=== PATIENT | female | born 1975 | race Two or more races ===

== ENCOUNTER 2022-07-20 14:22 | Inpatient (IN) | payer BC, OTHER ==
[~2022-07-20] VITALS: Ht 162.6 cm; Wt 83.4 kg
[2022-07-20 15:31] LABS: Urine Bacteria FEW /hpf (None Seen); Urine Blood Negative /uL (Negative); Urine Specific Gravity 1.007 (1.001-1.035); Urine WBC 1 /hpf (0 - 5)
[2022-07-20] MEDS ORDERED: IOHEXOL 350 MG/ML 100ML IJ ONE (16:26)
[2022-07-20 16:48] LABS: Basophils # (auto) 0.1 10 ^3/uL (0-0.2); Basophils % (auto) 0.5 % (0.0-2.0); Eosinophils # (auto) 0.1 10 ^3/uL (0-0.8); Eosinophils % (auto) 1.2 % (0.0-7.0); Hemoglobin 14.8 g/dL (12.2-16.2); Lymphocytes # (auto) 2.8 10 ^3/uL (0.4-5.4); Lymphocytes % (auto) 28.1 % (10.0-50.0); Mean Corpuscular Hemoglobin 29.8 pg (28.0-32.0); Mean Corpuscular Hgb Conc. 34.5 g/dL (32.0-36.0); Mean Corpuscular Volume 86.2 fL (80.0-100.0); Monocytes # (auto) 0.5 10 ^3/uL (0-1.3); Monocytes % (auto) 5.4 % (0.0-12.0); Neutrophils # (auto) 6.5 10 ^3/uL (1.6-8.6); Neutrophils % (auto) 64.8 % (37.0-80.0); Nucleated Red Blood Cells % 0.3 %; Red Blood Cells 4.99 10^6/uL (4.0-5.20); Red Cell Distribution Width 13.4 % (11.8-14.3); White Blood Cell 10.1 10^3/uL (4.4-10.8)
[2022-07-20 16:54] LABS: INR 0.99 (0.9-1.15); Partial Thromboplastin Time 27.1 sec (24.6-33.4)
[2022-07-20 17:20] LABS: Albumin 4.2 g/dL (3.4-5.0); BUN/Creatinine Ratio 19.2; Bilirubin, Total 0.5 mg/dL (0.2-1.0); Calcium 8.9 mg/dL (8.5-10.1); Potassium 4.2 mmol/L (3.5-5.1); Total Protein 7.7 g/dL (6.4-8.2)
[2022-07-20] MEDS ORDERED: DOCUSATE SOD 100 MG CAP PO PRN (22:15)
[2022-07-20] MEDS ORDERED: ONDANSETRON HCL 4 MG/2 ML VIAL IV PRN (22:15)
[2022-07-20] MEDS ORDERED: HYDROcodone-ACET 5/325MG TAB PO PRN (22:15)
[2022-07-20] MEDS ORDERED: ACETAMINOPHEN 325 MG TAB PO PRN (22:15)
[2022-07-20] MEDS ORDERED: MORPHINE SULFATE INJ 2 MG/ml SYRG IV PRN (23:15)
[2022-07-20] MEDS ORDERED: NITROGLYCERIN 0.4 MG SL TAB SL PRN (23:15)
[2022-07-21] VITALS (7 sets, daily range): BP systolic 108–127; BP diastolic 59–69
[2022-07-21] MEDS: SODIUM CHLORIDE 0.9% 1,000 ML IV SCH ×2 (00:45→13:39)
[2022-07-21 06:17] LABS: Basophils # (auto) 0 10 ^3/uL (0-0.2); Basophils % (auto) 0.3 % (0.0-2.0); Eosinophils # (auto) 0.1 10 ^3/uL (0-0.8); Eosinophils % (auto) 1.8 % (0.0-7.0); Hematocrit 38.5 % (36.0-46.0); Hemoglobin 13.6 g/dL (12.2-16.2); Lymphocytes % (auto) 36.1 % (10.0-50.0); Mean Corpuscular Hemoglobin 30.5 pg (28.0-32.0); Mean Corpuscular Hgb Conc. 35.2 g/dL (32.0-36.0); Mean Corpuscular Volume 86.5 fL (80.0-100.0); Monocytes # (auto) 0.6 10 ^3/uL (0-1.3); Monocytes % (auto) 6.7 % (0.0-12.0); Neutrophils # (auto) 4.5 10 ^3/uL (1.6-8.6); Neutrophils % (auto) 55.1 % (37.0-80.0); Nucleated Red Blood Cells % 0.7 %; Red Blood Cells 4.45 10^6/uL (4.0-5.20); Red Cell Distribution Width 13.7 % (11.8-14.3); White Blood Cell 8.2 10^3/uL (4.4-10.8)
[2022-07-21 06:33] LABS: Potassium 4.1 mmol/L (3.5-5.1)
[2022-07-21 06:39] LABS: Albumin 3.4 g/dL (3.4-5.0); BUN/Creatinine Ratio 17.1; Calcium 8.6 mg/dL (8.5-10.1)
[2022-07-21 06:42] LABS: Bilirubin, Total 0.6 mg/dL (0.2-1.0); Total Protein 6.6 g/dL (6.4-8.2)
[2022-07-21] MEDS: PANTOPRAZOLE 40 MG/10 ML VIAL INJ IV SCH ×2 (10:06→22:03)
[2022-07-21] MEDS: HYDROCORTISONE ACET 25 MG RECTAL SUPP PR SCH (22:04)
[2022-07-22 05:00] VITALS: BP 110/57
[2022-07-22] MEDS: SODIUM CHLORIDE 0.9% 1,000 ML IV SCH (07:35)
[2022-07-22 09:46] LABS: Hematocrit 40.9 % (36.0-46.0); Hemoglobin 14.1 g/dL (12.2-16.2)
[2022-07-22] MEDS: PANTOPRAZOLE 40 MG/10 ML VIAL INJ IV SCH (10:14)
[2022-07-22] MEDS: HYDROCORTISONE ACET 25 MG RECTAL SUPP PR SCH (10:14)
[2022-07-22 13:22] VITALS: BP 110/70
[2022-07-22] MEDS ORDERED: DOCU-94 PO (14:11)
[2022-07-22 16:34] VITALS: BP 127/73
== END 2022-07-22 16:28 | disposition home or self-care (01) | DRG 394 ==
LOC: ER 14:22 → OVERFLOW 23:15 → CENTRAL 07-21 02:45
PROVIDERS: ADMIT Nurse Practitioner Family; ATTEND Internal Medicine
DX: K64.9 Unspecified hemorrhoids (principal); K62.5 Hemorrhage of anus and rectum; E66.9 Obesity, unspecified; Z90.49 Acquired absence of other specified parts of digestive tract; Z87.440 Personal history of urinary (tract) infections; Z68.31 Body mass index [BMI] 31.0-31.9, adult; Z20.822 Contact with and (suspected) exposure to COVID-19
CPT/HCPCS: 36415; 74177; 80053; 81001; 83605; 84484; 85014; 85018; 85025; 85610; 85730; 87426; C9113; G0378

== ENCOUNTER → 2023-01-31 | Day surgery (SDC) | payer BC ==
[2023-01-29 10:52] LABS: Basophils # (auto) 0.1 10 ^3/uL (0-0.2); Basophils % (auto) 0.9 % (0.0-2.0); Eosinophils # (auto) 0.1 10 ^3/uL (0-0.8); Eosinophils % (auto) 1.2 % (0.0-7.0); Hematocrit 42.7 % (36.0-46.0); Hemoglobin 14.4 g/dL (12.2-16.2); Lymphocytes # (auto) 2.6 10 ^3/uL (0.4-5.4); Lymphocytes % (auto) 27.1 % (10.0-50.0); Mean Corpuscular Hemoglobin 29.6 pg (28.0-32.0); Mean Corpuscular Hgb Conc. 33.8 g/dL (32.0-36.0); Mean Corpuscular Volume 87.6 fL (80.0-100.0); Monocytes # (auto) 0.5 10 ^3/uL (0-1.3); Monocytes % (auto) 5.4 % (0.0-12.0); Neutrophils # (auto) 6.3 10 ^3/uL (1.6-8.6); Neutrophils % (auto) 65.4 % (37.0-80.0); Red Blood Cells 4.88 10^6/uL (4.0-5.20); Red Cell Distribution Width 13.2 % (11.8-14.3); White Blood Cell 9.6 10^3/uL (4.4-10.8)
[2023-01-29 11:23] LABS: INR 1.01 (0.9-1.15); Partial Thromboplastin Time 26.8 SEC (24.5-34.5); Prothrombin Time 10.6 sec (9.3-11.8)
[2023-01-29 12:39] LABS: Alanine Aminotransferase 24 U/L (7-40); Alkaline Phosphatase 67 U/L (46-116); BUN/Creatinine Ratio 14.3 (10.0-20.0); Blood Urea Nitrogen 11 mg/dL (9-23); Calcium 9.3 mg/dL (8.5-10.1); Carbon Dioxide 25 mmol/L (20-30); Glucose 107 mg/dL (74-106)
[2023-01-29 12:40] LABS: Albumin 4.3 g/dL (3.2-4.8); Aspartate Aminotransferase 11 U/L (13-40)
[2023-01-29 12:41] LABS: Bilirubin, Total 0.5 mg/dL (0.2-1.0); Total Protein 6.9 g/dL (5.7-8.2)
[2023-01-29 12:56] LABS: Anion Gap 8 (5-15); Chloride 106 mmol/L (98-107); Potassium 4.1 mmol/L (3.5-5.1); Sodium 139 mmol/L (136-145)
[~2023-01-31] VITALS: Ht 162.6 cm; Wt 93.4 kg
[~2023-01-31] MED LIST: ALL100T PO; AMLO1TAB21 PO; ATOR40TA52 PO; OMEP20TA PO; SODIUM CHLORIDE LOCK 10 ML ONE
[2023-01-31 16:00] VITALS: O2SAT 95
[2023-01-31] MEDS: diphenhdrAMINE HCL 50 MG/1 ML VL ONE ×2 (16:12→16:15)
[2023-01-31] MEDS: fentaNYL CITRATE 100 MCG/2 ML VL ONE ×3 (16:12→16:18)
[2023-01-31] MEDS: MIDAZOLAM HCL 5 MG/ML-1ML VIAL ONE ×3 (16:12→16:18)
[2023-01-31 16:30] VITALS: TEMP 98.8
[2023-01-31 17:00] VITALS: BP 108/69; PULSE 82; RESP 16; O2SAT 98
== END | disposition home or self-care (01) ==
LOC: GI 13:34
PROVIDERS: ATTEND Internal Medicine Gastroenterology
DX: K62.5 Hemorrhage of anus and rectum (principal); K63.5 Polyp of colon; K64.8 Other hemorrhoids; K64.4 Residual hemorrhoidal skin tags; I10 Essential (primary) hypertension; E78.5 Hyperlipidemia, unspecified; Z83.3 Family history of diabetes mellitus; Z82.49 Family history of ischemic heart disease and other diseases of the circulatory system; Z79.899 Other long term (current) drug therapy; Z90.710 Acquired absence of both cervix and uterus; Z98.890 Other specified postprocedural states
CPT/HCPCS: 36415; 45380; 80053; 81025; 85025; 85610; 85730; 88305; J1200; J2250; J3010; J7030

== ENCOUNTER 2024-07-17 04:52 | Inpatient (IN) | payer BC ==
[~2024-07-17] VITALS: Ht 162.6 cm; Wt 101.7 kg
[~2024-07-17 04:52] MED LIST changes: -SODIUM CHLORIDE LOCK 10 ML ONE
--- NOTE | 2024-07-17 06:29 | ED.PDOC ---
General HPI Comments 48 y/o F, presents to the ED for CC of flank pain. Patient states, that she has been experiencing LUQ abdominal pain with associated flank pain x4days. Patient relays, that she was seen at [facility] urgent care last night (07/16/24) and was given a Ketorolac shot for the pain and relayed to receive further imaging today (07/17/24). Patient complains of current 8/10 pain. Patient denies dysuria, hematuria, nausea, vomiting, or diarrhea. No other associated symptom's, modifiers, recent injuries or sick contacts at this time. Chief Complaint: Flank Pain Time Seen by MD: 06:10 Primary Care Provider: unknown Reviewed notes: Nurses Notes, Medications, Allergies Allergies: Coded Allergies: NO KNOWN ALLERGIES (Unverified , 07/20/22) Home Meds Reported Medications Omeprazole (Gnp Omeprazole) 20 Mg Tab, 20 MG PO DAILY, TAB 01/29/23 Amlodipine Besylate (Amlodipine Besylate) 2.5 Mg Tab, 2.5 MG PO DAILY, TAB 01/29/23 Atorvastatin Calcium (ATORVASTATIN CALCIUM) 40 Mg Tab, 40 MG PO DAILY, TAB 01/29/23 Allopurinol (ZYLOPRIM TABLET) 100 Mg Tb, 100 MG PO DAILY, TAB 01/29/23 Information Source: Patient, Significant Other Mode of Arrival: Ambulatory Severity: Moderate Inability to void: None Timing: Days Duration: Since onset Prehospital treatment: None Onset: Spontaneous Symptoms: None History of: UTI Location: (L)Flank associated signs and symptoms: Flank Pain Past Medical History PAST MEDICAL HISTORY: UTI'S Surgical History: Appendectomy, Cholecystectomy Surgical History (Other): RN URGENT CARE History: Other (ovaries) Family History Family History: Unknown Social History Smoker: Non-Smoker Alcohol: Denies ETOH Use Drugs: Denies Drug Use Lives In: Home Constitutional: denies: chills, diaphoresis, fatigue, fever, malaise, sweats, weakness, others EENTM: denies: blurred vision, double vision, ear bleeding, ear discharge, ear drainage, ear pain, ear ringing, eye pain, eye redness, hearing loss, mouth pain, mouth swelling, nasal discharge, nose bleeding, nose congestion, nose pain, photophobia, tearing, throat pain, throat swelling, voice changes, others Respiratory: denies: cough, hemoptysis, orthopnea, SOB at rest, shortness of breath, SOB with excertion, stridor, wheezing, others Cardiovascular: denies: chest pain, dizzy spells, diaphoresis, Dyspnea on exertion, edema, irregular heart beat, left arm pain, lightheadedness, palpitations, PND, syncope, others Gastrointestinal: denies: abdomen distended, abdominal pain, blood streaked bowels, constipated, diarrhea, dysphagia, difficulty swallowing, hematemesis, melena, nausea, poor appetite, poor fluid intake, rectal bleeding, rectal pain, vomiting, others Genitourinary: reports: flank pain; denies: abnormal vagina bleeding, burning, dyspareunia, dysuria, frequency, hematuria, incontinence, pain, , vagina discharge, urgency, others Neurological: denies: dizziness, fainting, headache, left sided numbness, left sided weakness, numbness, paresthesia, pre-existing deficit, right sided numbness, right sided weakness, seizure, speech problems, tingling, tremors, weakness, others Musculoskeletal: denies: back pain, gout, joint pain, joint swelling, muscle pain, muscle stiffness, neck pain, others Integumetry: denies: bruises, change in color, change in hair/nails, dryness, laceration, lesions, lumps, rash, wounds, others Allergic/Immunocompromised: denies: Difficulty Healing, Frequent Infections, Hives, Itching, others Hematologic/Lymphatic: denies: anemia, blood clots, easy bleeding, easy bruising, swollen glands, others Endocrine: denies: excessive hunger, excessive sweating, excessive thirst, excessive urination, flushing, intolerance to cold, intolerance to heat, unexplained weight gain, unexplained weight loss, others Psychiatric: denies: anxiety, bipolar disorder, depression, hopeless, panic disorder, schizophrenia, sleepless, suicidal, others All Other Systems: Reviewed and Negative Physical Exam General Appearance: Moderate Distress HEENT: Normal ENT Inspection, Pharynx Normal, TMs Normal Neck: Full Range of Motion, Non-Tender, Normal, Normal Inspection Respiratory: Chest Non-Tender, Lungs Clear, No Accessory Muscle Use, No Respiratory Distress, Normal Breath Sounds Cardiovascular: No Edema, No JVD, No Murmur, No Gallop, Normal Peripheral Pulses, Regular Rate/Rhythm Breast Exam: Deferred Gastrointestinal: No Organomegaly, Non Tender, No Pulsatile Mass, Normal Bowel Sounds, Soft Genitalia: Deferred Pelvic: Deferred Rectal: Deferred Extremities: No calf tenderness, Normal capillary refill, Normal inspection, Normal range of motion, Non-tender, No pedal edema Musculoskeletal : Apperance: Normal Neurologic: Alert, systems spec II-XII nml as Tested, No Motor Deficits, Normal Affect, Normal Mood, No Sensory Deficits Cerebellar Function: Normal Reflexes: Normal Skin: Dry, Normal Color, Warm Peripheral Pulses: 3+ Radial (R), 3+ Radial (L) Lymphatic: No Adenopathy Was a procedure done? Was a procedure done?: No Differential Diagnosis Kidney stone (Female): Musculoskeletal pain, Pyelonephritis, Urinary obstruction, Urolithiasis X-Ray, Labs, Meds, VS Vital Signs Date Time Temp Pulse Resp B/P (MAP) Pulse Ox O2 Delivery O2 Flow Rate FiO2 07/17/24 07:41 71 16 94 Room Air 07/17/24 07:30 71 18 98 Room Air* 0 21 07/17/24 07:20 98.0 71 16 114/62 (79) 92 98.0 07/17/24 05:02 97.8 72 16 122/61 (81) 95 Lab Test 07/17/24 05:45 Range/Units White Blood Count 10.0 4.4-10.8 10^3/uL Red Blood Count 5.04 4.0-5.20 10^6/uL Hemoglobin 15.4 12.2-16.2 g/dL Hematocrit 44.6 36.0-46.0 % Mean Corpuscular Volume 88.5 80.0-100.0 fL Mean Corpuscular Hemoglobin 30.6 28.0-32.0 pg Mean Corpuscular Hemoglobin Concent 34.5 32.0-36.0 g/dL Red Cell Distribution Width 13.1 11.8-14.3 % Platelet Count 214 140-450 10^3/uL Mean Platelet Volume 8.6 6.9-10.8 fL Neutrophils (%) (Auto) 67.6 37.0-80.0 % Lymphocytes (%) (Auto) 24.3 10.0-50.0 % Monocytes (%) (Auto) 5.8 0.0-12.0 % Eosinophils (%) (Auto) 1.7 0.0-7.0 % Basophils (%) (Auto) 0.6 0.0-2.0 % Neutrophils # (Auto) 6.8 1.6-8.6 10 ^3/uL Lymphocytes # (Auto) 2.4 0.4-5.4 10 ^3/uL Monocytes # (Auto) 0.6 0-1.3 10 ^3/uL Eosinophils # (Auto) 0.2 0-0.8 10 ^3/uL Basophils # (Auto) 0.1 0-0.2 10 ^3/uL Nucleated Red Blood Cells 0.1 % Sodium Level 134 L 136-145 mmol/L Potassium Level 4.3 3.5-5.1 mmol/L Chloride Level 102 98-107 mmol/L Carbon Dioxide Level 24 20-31 mmol/L Anion Gap 8 5-15 Blood Urea Nitrogen 9 9-23 mg/dL Creatinine 0.82 0.550-1.02 mg/dL Glomerular Filtration Rate Calc 87 >90 mL/min BUN/Creatinine Ratio 11.0 10.0-20.0 Serum Glucose 114 H 74-106 mg/dL Calcium Level 9.6 8.7-10.4 mg/dL Current Medications Medications (Trade) Dose Ordered Sig/Elvira Route Start Time Stop Time Status Last Admin Sodium Chloride 1,000 ml @ 1,000 mls/hr Q1H ONCE IV 07/17/24 06:30 07/17/24 07:29 DC 07/17/24 07:00 Sodium Chloride 1,000 ml @ 150 mls/hr Q6H40M ONCE IV 07/17/24 06:30 07/17/24 13:09 07/17/24 06:30 Ketorolac Tromethamine (Toradol Injection) 30 mg ONCE ONCE IV 07/17/24 06:30 07/17/24 06:31 DC 07/17/24 07:06 Ondansetron HCl (Zofran) 4 mg ONCE ONCE IV 07/17/24 06:30 07/17/24 06:31 DC 07/17/24 07:[address] [address] Ph: [phone] DIAGNOSTIC IMAGING Diagnostic Imaging Report : [id number] Signed PATIENT: PATRICIA WILKINS ACCT: [id number] UNIT: [id number] : 1975 LOC: ER ROOM / BED: / AGE / SEX: 48 / F ADM STATUS: REG ER SERVICE 0716 ORDERING PHYSICIAN: JARED CANALES MD PROCEDURE(s): ABPL - CT AB PEL WO CON-NO ORAL OR IV REASON: stone ORDER NUMBER(s): [id number], ACCESSION NUMBER(s): [id number] Exam: CT CT AB PEL WO CON-NO ORAL OR IV History: stone Comparison Study: None available at time of dictation. Technique: Multidetector spiral CT of the abdomen and pelvis was performed from lung bases to pubic symphysis. Imaging was performed without intravenous contrast. Coronal and sagittal multiplanar reformats were obtained from the axial data set by the technologist. Radiation Dose : 1. Abdomen/Pelvis: CTDIvol 24.67 mGy, DLP 1542.65 mGy*cm. Findings: Evaluation of vasculature and solid organs is limited due to lack of intravenous contrast use. Lung Bases: Lung bases are clear. Visualized portions of the heart and pericardium are unremarkable. Liver: The liver is normal in size. No focal lesions. Gallbladder and Biliary Tree: The gallbladder is surgically absent. No intrahe patic or extrahepatic biliary ductal dilatation. Spleen: Unremarkable Pancreas: The pancreas is grossly unremarkable. Adrenal Glands: Unremarkable Kidneys: Kidneys are unremarkable without calculi or hydronephrosis. GI tract: The stomach is grossly normal in appearance. No evidence of small bowel wall thickening or abnormal dilatation to suggest bowel obstruction. The colon is unremarkable. The appendix is not visualized, however no inflammatory changes in the right lower quadrant to suggest acute appendicitis. Peritoneum/mesentery/retroperitoneum. No evidence of free intraperitoneal air. No ascites. No evidence of suspicious lymphadenopathy. Abdominal Wall: Fat containing umbilical hernia. Vasculature: The visualized abdominal aorta is normal in size and caliber. Evaluation of abdominal and pelvic vessels is limited due to lack of intravenous contrast. Urinary Bladder: Grossly unremarkable for degree of distention. Pelvic Organs: Unremarkable Musculoskeletal: No aggressive focal bony lesions, acute fractures or dislocation. IMPRESSION: 1. No acute abdominal or pelvic findings. 2. Cholecystectomy. ATED BY: KALIE DANIEL MD DICTATED DATE/TIME: 07/17/24 9639 SIGNED BY: KALIE DANIEL MD SIGNED DATE/TIME: 07/17/24 0755 CC: Patient alert. Complaining of flank pain. Possible kidney stone. Vitals stable. Answering questions. Abdomen is soft nontender. Establish intravenous access. Was given fluids. Was given Toradol. Reviewed her visit at urgent care yesterday. Explained to the patient. Continue monitoring. Time of 1ST Reevaluation: 06:40 Reevaluation 1ST: Unchanged Patient Education/Counseling: Diagnosis, Treatment Family Education/Counseling: No Family Present Departure 1 Departure Time of Disposition: 07:03 Impression: Primary Impression: Acute abdominal pain Disposition: ADMITTED INPATIENT Admit to: Med Surg Condition: Guarded Critical Care Note Critical Care Time?: No Stability Stability form required: No Heart Score Heart Score: Heart Score Response (Comments) Value History N/A 0 EKG N/A 0 Age N/A 0 Risk Factors N/A 0 Troponin N/A 0 Total 0 I personally scribed for JARED CANALES MD ([email or web address]) on 07/17/24 at 06:29. Electronically submitted by Viviana Liu ([email or web address]). I personally scribed for JARED CANALES MD ([email or web address]) on 07/17/24 at 08:03. Electronically submitted by Viviana Liu ([email or web address]). JARED CANALES MD Jul 17, 2024 06:29
[2024-07-17] MEDS: SODIUM CHLORIDE 0.9% 1,000 ML IV ONE ×2 (06:30→07:00)
[2024-07-17 06:47] LABS: Anion Gap 8 (5-15); Basophils # (auto) 0.1 10 ^3/uL (0-0.2); Basophils % (auto) 0.6 % (0.0-2.0); Carbon Dioxide 24 mmol/L (20-31); Chloride 102 mmol/L (98-107); Eosinophils # (auto) 0.2 10 ^3/uL (0-0.8); Eosinophils % (auto) 1.7 % (0.0-7.0); Hematocrit 44.6 % (36.0-46.0); Hemoglobin 15.4 g/dL (12.2-16.2); Lymphocytes # (auto) 2.4 10 ^3/uL (0.4-5.4); Lymphocytes % (auto) 24.3 % (10.0-50.0); Mean Corpuscular Hemoglobin 30.6 pg (28.0-32.0); Mean Corpuscular Hgb Conc. 34.5 g/dL (32.0-36.0); Mean Corpuscular Volume 88.5 fL (80.0-100.0); Monocytes # (auto) 0.6 10 ^3/uL (0-1.3); Monocytes % (auto) 5.8 % (0.0-12.0); Neutrophils # (auto) 6.8 10 ^3/uL (1.6-8.6); Neutrophils % (auto) 67.6 % (37.0-80.0); Nucleated Red Blood Cells % 0.1 %; Platelet Count (auto) 214 10^3/uL (140-450); Potassium 4.3 mmol/L (3.5-5.1); Red Blood Cells 5.04 10^6/uL (4.0-5.20); Red Cell Distribution Width 13.1 % (11.8-14.3)
[2024-07-17 06:48] LABS: Calcium 9.6 mg/dL (8.7-10.4)
[2024-07-17 06:53] LABS: Blood Urea Nitrogen 9 mg/dL (9-23); Glucose 114 mg/dL (74-106); Sodium 134 mmol/L (136-145)
[2024-07-17] MEDS: KETOROLAC TROMETH 30 MG/ML 1ML VIAL IV ONE (07:06)
[2024-07-17] MEDS: ONDANSETRON HCL 4 MG/2 ML VIAL IV ONE (07:06)
[2024-07-17 07:30] VITALS: PULSE 71; RESP 18; O2SAT 98
--- NOTE | 2024-07-17 07:58 | DVH ---
Exam: CT CT AB PEL WO CON-NO ORAL OR IV History: stone Comparison Study: None available at time of dictation. Technique: Multidetector spiral CT of the abdomen and pelvis was performed from lung bases to pubic s ymphysis. Imaging was performed without intravenous contrast. Coronal and sagittal multiplanar reform ats were obtained from the axial data set by the technologist. Radiation Dose : 1. Abdomen/Pelvis: CTDIvol 24.67 mGy, DLP 1542.65 mGy*cm. Findings: Evaluation of vasculature and solid organs is limited due to lack of intravenous contrast use. Lung Bases: Lung bases are clear. Visualized portions of the heart and pericardium are unremarkable. Liver: The liver is normal in size. No focal lesions. Gallbladder and Biliary Tree: The gallbladder is surgically absent. No intrahepatic or extrahepatic b iliary ductal dilatation. Spleen: Unremarkable Pancreas: The pancreas is grossly unremarkable. Adrenal Glands: Unremarkable Kidneys: Kidneys are unremarkable without calculi or hydronephrosis. GI tract: The stomach is grossly normal in appearance. No evidence of small bowel wall thickening or abnormal dilatation to suggest bowel obstruction. The colon is unremarkable. The appendix is not visu alized, however no inflammatory changes in the right lower quadrant to suggest acute appendicitis. Peritoneum/mesentery/retroperitoneum. No evidence of free intraperitoneal air. No ascites. No evidenc e of suspicious lymphadenopathy. Abdominal Wall: Fat containing umbilical hernia. Vasculature: The visualized abdominal aorta is normal in size and caliber. Evaluation of abdominal a nd pelvic vessels is limited due to lack of intravenous contrast. Urinary Bladder: Grossly unremarkable for degree of distention. Pelvic Organs: Unremarkable Musculoskeletal: No aggressive focal bony lesions, acute fractures or dislocation. IMPRESSION: 1. No acute abdominal or pelvic findings. 2. Cholecystectomy.
[2024-07-17 09:49] LABS: Urine Bacteria FEW /hpf (None Seen); Urine Blood Negative /uL (Negative); Urine Clarity Clear (Clear); Urine Color Light-Yellow (Yellow); Urine Protein, UAD Negative (Negative); Urine Specific Gravity 1.012 (1.001-1.035); Urine Squamous Epithelial Cell FEW /hpf (<5); Urine Urobilinogen Normal (Negative); Urine WBC 1 /HPF (0-5); Urine pH 5.5 (5.0-9.0)
[2024-07-17] MEDS ORDERED: ACETAMINOPHEN 325 MG TAB PO PRN (11:15)
--- NOTE | 2024-07-17 11:20 | DVHHP2 ---
History of Present Illness Reason for Visit: Left flank pain History of Present Illness Dorene Byunm is a 48-year-old female with past medical history of UTIs, rectal bleeding, appendectomy, cholecystectomy, oophorectomy, and polyps from the colonoscopy who presents to the ED with left flank pain that is 9/10 throbbing and intermittent in nature. Patient also reports that when she eats the pain is worse. She also reports that when she stands the pain is better. Patient is denying of urinary symptoms at this time. She denies nausea, vomiting, diarrhea, bloody stool, bloody emesis, fever, chills, recent trauma or injury, recent illnesses, recent ingestion of spoiled food Renal/: UTI Past Medical History Rectal bleeding Polyps on colonoscopy Past Surgical History: Appendectomy, Cholecystectomy, Other (Oophorectomy) Family History: None Smoke: No ALCOHOL: none Drugs: None Lives: with Family Domestic Violence: Neg Review of Systems Gastrointestinal: Abdominal Pain Musculoskeletal: other (Left-sided flank pain) Allergies: Coded Allergies: NO KNOWN ALLERGIES (Unverified , 07/20/22) Exam Vital Signs Vital Signs Date Time Temp Pulse Resp B/P (MAP) Pulse Ox O2 Delivery O2 Flow Rate FiO2 07/17/24 09:05 97.9 66 15 112/64 (80) 92 97.9 07/17/24 07:41 Room Air 07/17/24 07:30 0 21 General Appearance: Alert, Oriented X3, Cooperative, No acute distress HEENT: Atraumatic, PERRLA, EOMI, Mucous membr. moist/pink Respiratory: Clear to auscultation, Normal air movement Cardiovascular: Normal S1, Normal S2, No murmurs Abdominal: Soft, No hepatospenomegaly, No masses Extremities: No cyanosis, Normal pulses, No tenderness/swelling Skin: No rashes, No breakdown, No significant lesion Neuro: Normal gait, Normal speech, Strength at 5/5 X4 ext, Normal tone, Sensation intact Psych/Mental Status: Mental status NL, Mood NL Labs/Xrays Labs Test 07/17/24 08:30 07/17/24 05:45 Range/Units Urine Color Light-yellow Yellow Urine Clarity Clear Clear Urine pH 5.5 5.0-9.0 Urine Specific [place] 1.012 1.001-1.035 Urine Protein Negative Negative Urine Ketones Negative Negative Urine Blood Negative Negative /uL Urine Nitrite Negative Negative Urine Bilirubin Negative Negative Urine Urobilinogen Normal Negative mg/dL Urine Leukocyte Esterase Negative Negative /uL Urine RBC 1 0 - 4 /hpf Urine Microscopic WBC 1 0-5 /HPF Urine Squamous Epithelial Cells Few <5 /hpf Urine Bacteria Few H None Seen /hpf Urine Glucose Normal Normal mg/dL White Blood Count 10.0 4.4-10.8 10^3/uL Red Blood Count 5.04 4.0-5.20 10^6/uL Hemoglobin 15.4 12.2-16.2 g/dL Hematocrit 44.6 36.0-46.0 % Mean Corpuscular Volume 88.5 80.0-100.0 fL Mean Corpuscular Hemoglobin 30.6 28.0-32.0 pg Mean Corpuscular Hemoglobin Concent 34.5 32.0-36.0 g/dL Red Cell Distribution Width 13.1 11.8-14.3 % Platelet Count 214 140-450 10^3/uL Mean Platelet Volume 8.6 6.9-10.8 fL Neutrophils (%) (Auto) 67.6 37.0-80.0 % Lymphocytes (%) (Auto) 24.3 10.0-50.0 % Monocytes (%) (Auto) 5.8 0.0-12.0 % Eosinophils (%) (Auto) 1.7 0.0-7.0 % Basophils (%) (Auto) 0.6 0.0-2.0 % Neutrophils # (Auto) 6.8 1.6-8.6 10 ^3/uL Lymphocytes # (Auto) 2.4 0.4-5.4 10 ^3/uL Monocytes # (Auto) 0.6 0-1.3 10 ^3/uL Eosinophils # (Auto) 0.2 0-0.8 10 ^3/uL Basophils # (Auto) 0.1 0-0.2 10 ^3/uL Nucleated Red Blood Cells 0.1 % Sodium Level 134 L 136-145 mmol/L Potassium Level 4.3 3.5-5.1 mmol/L Chloride Level 102 98-107 mmol/L Carbon Dioxide Level 24 20-31 mmol/L Anion Gap 8 5-15 Blood Urea Nitrogen 9 9-23 mg/dL Creatinine 0.82 0.550-1.02 mg/dL Glomerular Filtration Rate Calc 87 >90 mL/min BUN/Creatinine Ratio 11.0 10.0-20.0 Serum Glucose 114 H 74-106 mg/dL Calcium Level 9.6 8.7-10.4 mg/dL INDICATION: left flank pain TECHNIQUE: Multiple real-time sonographic images of the kidneys and bladder were obtained. COMPARISON: None FINDINGS: RIGHT kidney measures 10.5 cm in length. No hydronephrosis. LEFT kidney measures 11.0 cm in length. No hydronephrosis. No large intraluminal masses are seen in the bladder. IMPRESSION: 1. Unremarkable examination. Exam: CT CT AB PEL WO CON-NO ORAL OR IV History: stone Comparison Study: None available at time of dictation. Technique: Multidetector spiral CT of the abdomen and pelvis was performed from lung bases to pubic symphysis. Imaging was performed without intravenous contrast. Coronal and sagittal multiplanar reformats were obtained from the axial data set by the technologist. Radiation Dose : 1. Abdomen/Pelvis: CTDIvol 24.67 mGy, DLP 1542.65 mGy*cm. Findings: Evaluation of vasculature and solid organs is limited due to lack of intravenous contrast use. Lung Bases: Lung bases are clear. Visualized portions of the heart and pericardium are unremarkable. Liver: The liver is normal in size. No focal lesions. Gallbladder and Biliary Tree: The gallbladder is surgically absent. No intrahepatic or extrahepatic biliary ductal dilatation. Spleen: Unremarkable Pancreas: The pancreas is grossly unremarkable. Adrenal Glands: Unremarkable Kidneys: Kidneys are unremarkable without calculi or hydronephrosis. GI tract: The stomach is grossly normal in appearance. No evidence of small bowel wall thickening or abnormal dilatation to suggest bowel obstruction. The colon is unremarkable. The appendix is not visualized, however no inflammatory changes in the right lower quadrant to suggest acute appendicitis. Peritoneum/mesentery/retroperitoneum. No evidence of free intraperitoneal air. No ascites. No evidence of suspicious lymphadenopathy. Abdominal Wall: Fat containing umbilical hernia. Vasculature: The visualized abdominal aorta is normal in size and caliber. Evaluation of abdominal and pelvic vessels is limited due to lack of intravenous contrast. Urinary Bladder: Grossly unremarkable for degree of distention. Pelvic Organs: Unremarkable Musculoskeletal: No aggressive focal bony lesions, acute fractures or dislocation. IMPRESSION: 1. No acute abdominal or pelvic findings. 2. Cholecystectomy. Assessment/Plan Assessment/Plan Assessment Intractable left flank pain ? Colitis Hyponatremia History of UTIs History of rectal bleeding History of appendectomy History of cholecystectomy History of oophorectomy History of polyps on colonoscopy Plan Admit to med [facility] UA noted CT abdomen and pelvis noted 2 L IV fluids given in ED Antiemetics Pain management Left kidney ultrasound PPI Diet IV antibiotics-Zosyn Ultrasound left kidney ordered DVT prophylaxis not indicated patient ambulating Patient reports that she does not take any home medications Discussed plan of care with patient, patient's spouse, and nurse Plan discussed with: Patient, Spouse My Orders Orders - SEBLE SANCHEZ Procedure Category Date Status Time Kidney US 07/17/24 Logged 11:11 Admit ADMIT 07/17/24 Verified 11:14 Allergies ALLEN 07/17/24 Verified 11:14 Code Status CODE 07/17/24 Verified 11:14 Hydrocodone-Acet PHA 07/17/24 Verified 5/325mg Tab ([place] 11:15 Ondansetron Hcl PHA 07/17/24 Verified (Zofran) 11:15 Complete Blood Count LAB 07/18/24 Verified 04:00 Comprehensive LAB 07/18/24 Verified Metabolic Panel 04:00 Cardiac DIET 07/17/24 Verified Diet-2gna,Lofat,Lochol Lunch Acetaminophen Tablet PHA 07/17/24 Verified (Tylenol Tablet) 11:15 Morphine Sulfate PHA 07/17/24 Verified Injection 11:15 Date of Service: Jul 17, 2024 Billing Provider: SEBLE SANCHEZ Common Visit Codes: [id number] INP/OBS CARE (HIGH) SEBLE SANCHEZ Jul 17, 2024 11:20
[2024-07-17] MEDS: ONDANSETRON HCL 4 MG/2 ML VIAL IV PRN (11:42)
[2024-07-17] MEDS: MORPHINE SULFATE INJ 2 MG/ml SYRG IV PRN (11:47)
--- NOTE | 2024-07-17 12:37 | DVH ---
INDICATION: left flank pain TECHNIQUE: Multiple real-time sonographic images of the kidneys and bladder were obtained. COMPARISON: None FINDINGS: RIGHT kidney measures 10.5 cm in length. No hydronephrosis. LEFT kidney measures 11.0 cm in length. No hydronephrosis. No large intraluminal masses are seen in the bladder. IMPRESSION: 1. Unremarkable examination.
[2024-07-17 15:26] VITALS: BP 115/58; PULSE 92; RESP 25; TEMP 97.7; O2SAT 96
[2024-07-17 15:31] VITALS: PULSE 77; RESP 18; O2SAT 94
[2024-07-17] MEDS: PIPERACILLIN-TAZOB 3.375GM 100 ML IV ONE (16:20)
[2024-07-17] MEDS: PIPERACILLIN-TAZOB 3.375GM 100 ML IV SCH (16:21)
[2024-07-17 18:16] VITALS: BP 111/56; PULSE 74; RESP 18; TEMP 98; O2SAT 95
[2024-07-17 23:04] VITALS: BP 126/55; PULSE 77; RESP 18; TEMP 98; O2SAT 92
[2024-07-18] VITALS (7 sets, daily range): BP systolic 111–125; BP diastolic 50–74; PULSE 66–83; RESP 16–20; TEMP 97.8–98; O2SAT 93–100
[2024-07-18 07:03] LABS: Basophils # (auto) 0 10 ^3/uL (0-0.2); Basophils % (auto) 0.4 % (0.0-2.0); Eosinophils # (auto) 0.1 10 ^3/uL (0-0.8); Eosinophils % (auto) 1.6 % (0.0-7.0); Hematocrit 38.6 % (36.0-46.0); Hemoglobin 13.5 g/dL (12.2-16.2); Lymphocytes # (auto) 1.8 10 ^3/uL (0.4-5.4); Lymphocytes % (auto) 21.5 % (10.0-50.0); Mean Corpuscular Hemoglobin 30.7 pg (28.0-32.0); Mean Corpuscular Hgb Conc. 35.1 g/dL (32.0-36.0); Mean Corpuscular Volume 87.5 fL (80.0-100.0); Monocytes # (auto) 0.5 10 ^3/uL (0-1.3); Neutrophils % (auto) 70.5 % (37.0-80.0); Platelet Count (auto) 177 10^3/uL (140-450); Red Blood Cells 4.41 10^6/uL (4.0-5.20); Red Cell Distribution Width 13.3 % (11.8-14.3); White Blood Cell 8.5 10^3/uL (4.4-10.8)
[2024-07-18 07:21] LABS: Alanine Aminotransferase 31 U/L (7-40); Alkaline Phosphatase 73 U/L (46-116); Anion Gap 5 (5-15); Aspartate Aminotransferase 18 U/L (13-40); BUN/Creatinine Ratio 12.6 (10.0-20.0); Blood Urea Nitrogen 12 mg/dL (9-23); Calcium 9.1 mg/dL (8.7-10.4); Carbon Dioxide 26 mmol/L (20-31); Chloride 107 mmol/L (98-107); Potassium 4.4 mmol/L (3.5-5.1); Sodium 138 mmol/L (136-145); Total Protein 6.3 g/dL (5.7-8.2)
[2024-07-18 07:22] LABS: Bilirubin, Total 0.6 mg/dL (0.2-1.0)
[2024-07-18 07:28] LABS: Glucose 115 mg/dL (74-106)
[2024-07-18] MEDS: PANTOPRAZOLE 40 MG/10 ML VIAL INJ IV SCH (08:25)
--- NOTE | 2024-07-18 09:52 | MEDREC ---
[facility] ASP Intervention Section I [facility] ASP Intervention: Review courses of therapy (PLEASE CONSIDER DISCONTINUING ANTIBIOTIC IF THERE IS NO MORE CONCERN OF INFECTIONS) KRISTIE JAEGER Jul 18, 2024 09:52
--- NOTE | 2024-07-18 12:43 | DVHPN2 ---
Reviewed: Care Plan, H&P, Labs, Medications, Previous Orders, Radiology Changes from previous H/P or p: No Changes Gastrointestinal: Abdominal Pain Musculoskeletal: other (Left-sided flank pain) Objective Vitals Vital Signs Date Time Temp Pulse Resp B/P (MAP) Pulse Ox O2 Delivery O2 Flow Rate FiO2 07/18/24 09:00 97.8 73 17 111/73 (86) 95 97.8 07/18/24 08:00 Room Air* 0 21 Intake/Output Intake and Output 07/18/24 07:00 Intake Total 390 ml Output Total 1 ml Balance 389 ml Intake Oral 390 ml Output Urine Total 1 ml Medications Current Medications Medications Dose Ordered Sig/Elvira Route Start Time Stop Time Status Last Admin Dose Admin Acetaminophen/ Hydrocodone Bitart 1 tab Q4HP PRN PO 07/17/24 11:15 Ondansetron HCl 4 mg Q4HP PRN IV 07/17/24 11:15 07/18/24 08:24 4 MG Acetaminophen 650 mg Q6HP PRN PO 07/17/24 11:15 Morphine Sulfate 2 mg Q4HPRN PRN IV 07/17/24 11:15 07/18/24 08:25 2 MG Pantoprazole Sodium 40 mg DAILY IV 07/18/24 10:00 07/18/24 08:25 40 MG Piperacillin Sod/ Tazobactam Sod 100 ml @ 25 mls/hr Q8HR IV 07/17/24 14:00 07/18/24 05:38 25 MLS/HR Laboratory Results Laboratory Tests 07/18/24 06:15 Chemistry Test 07/18/24 06:15 Albumin 4.0 g/dL (3.2-4.8) Calcium Level 9.1 mg/dL (8.7-10.4) Total Protein 6.3 g/dL (5.7-8.2) LFT Test 07/18/24 06:15 Alanine Aminotransferase (ALT) 31 U/L (7-40) Alkaline Phosphatase 73 U/L (46-116) Aspartate Amino Transferase (AST) 18 U/L (13-40) Total Bilirubin 0.6 mg/dL (0.2-1.0) Urinalysis Test 07/17/24 08:30 Urine Color Light-yellow (Yellow) Urine Clarity Clear (Clear) Urine pH 5.5 (5.0-9.0) Urine Specific [place] 1.012 (1.001-1.035) Urine Protein Negative (Negative) Urine Ketones Negative (Negative) Urine Blood Negative /uL (Negative) Urine Nitrite Negative (Negative) Urine Bilirubin Negative (Negative) Urine Urobilinogen Normal mg/dL (Negative) Urine Leukocyte Esterase Negative /uL (Negative) Urine RBC 1 /hpf (0 - 4) Urine Microscopic WBC 1 /HPF (0-5) Urine Squamous Epithelial Cells Few /hpf (<5) Urine Bacteria Few /hpf (None Seen) H Urine Glucose Normal mg/dL (Normal) Labs and/or images reviewed: Labs reviewed by me, Image(s) reviewed by me Assessment/Plan Assessment/Plan Acute left flank pain: CT abdomen pelvis without contrast negative all labs normal UA negative for infection: Consult for GI Dr. Nicko Salmeron Urinary tract infections History of rectal bleed History of removal of colon polyps Plan discussed with: Patient My Orders Orders - COURTNEY BLAKELY MD Procedure Category Date Status Time * [facility] [place] CONS 07/18/24 Transmitted 12:41 Date of Service: Jul 18, 2024 Billing Provider: COURTNEY BLAKELY MD Common Visit Codes: [id number] INP/OBS CARE(HIGH) COURTNEY BLAKELY MD Jul 18, 2024 12:43
[2024-07-18] MEDS: HYDROcodone-ACET 5/325MG TAB PO PRN (13:03)
--- NOTE | 2024-07-18 14:14 | DVHINCON2 ---
GI Consult Consult Note GI consult note Date of Consultation: 07/18/2024 Chief Complaint: Left flank pain Referring Physician: Dr. Keyona Blakely H&P: 48-year-old [place]auan-speaking patient presented to ER with left flank pain. RN translating Patient complains of pain being stabbing in nature, starts in the left upper quadrant and radiates to her left flank Pain is worse after eating food No nausea or vomiting. No hematemesis. No symptoms of GERD. No EGD in past Last BM two days ago. No melena or red blood in stool SP colonoscopy DATE OF OPERATION: 01/31/23 PROCEDURE: Colonoscopy with biopsy. PREOPERATIVE INDICATION: The patient is a 47 -year-old female undergoing colonoscopy for history of rectal bleeding and colon cancer screening POSTOPERATIVE DIAGNOSES: 1. Patient had 1+ slightly inflamed internal and 2+ external hemorrhoids with no active bleeding at this time 2. There were 3 diminutive 1 mm benign-appearing sigmoid polyps that were seen removed by cold biopsy forceps 3. Otherwise complete and normal colonoscopy examination up to the cecum and terminal ileum PROCEDURE PERFORMED BY: Stephani Salmeron M.D. Past Medical History: Rectal bleeding Polyps on colonoscopy Past Surgical History: Appendectomy, Cholecystectomy, Other (Oophorectomy) Social History: NO smoking, drinking ETOH and use of illegal drugs. Family History: Noncontributory Review of Systems: Constitutional: no fever, chill, weight loss HEENT: no eye pain, no hearing loss, no oral lesion, no scleral icterus Heart: no chest pain, no chest pressure Lung: no cough, no dyspnea with exertion Abdomen: see HPI Physical exam: General: NAD, AAOX3 Chest: lung morgan clear to auscultation Heart: RRR, no murmur Abdomen: Left upper quadrant tenderness to palpation, +BS Labs: Labs Test 07/18/24 06:15 07/17/24 08:30 Range/Units White Blood Count 8.5 4.4-10.8 10^3/uL Red Blood Count 4.41 4.0-5.20 10^6/uL Hemoglobin 13.5 12.2-16.2 g/dL Hematocrit 38.6 # 36.0-46.0 % Mean Corpuscular Volume 87.5 80.0-100.0 fL Mean Corpuscular Hemoglobin 30.7 28.0-32.0 pg Mean Corpuscular Hemoglobin Concent 35.1 32.0-36.0 g/dL Red Cell Distribution Width 13.3 11.8-14.3 % Platelet Count 177 140-450 10^3/uL Mean Platelet Volume 8.6 6.9-10.8 fL Neutrophils (%) (Auto) 70.5 37.0-80.0 % Lymphocytes (%) (Auto) 21.5 10.0-50.0 % Monocytes (%) (Auto) 6.0 0.0-12.0 % Eosinophils (%) (Auto) 1.6 0.0-7.0 % Basophils (%) (Auto) 0.4 0.0-2.0 % Neutrophils # (Auto) 6.0 1.6-8.6 10 ^3/uL Lymphocytes # (Auto) 1.8 0.4-5.4 10 ^3/uL Monocytes # (Auto) 0.5 0-1.3 10 ^3/uL Eosinophils # (Auto) 0.1 0-0.8 10 ^3/uL Basophils # (Auto) 0 0-0.2 10 ^3/uL Nucleated Red Blood Cells 0.0 % Sodium Level 138 136-145 mmol/L Potassium Level 4.4 3.5-5.1 mmol/L Chloride Level 107 98-107 mmol/L Carbon Dioxide Level 26 20-31 mmol/L Anion Gap 5 5-15 Blood Urea Nitrogen 12 9-23 mg/dL Creatinine 0.95 0.550-1.02 mg/dL Glomerular Filtration Rate Calc 73 >90 mL/min BUN/Creatinine Ratio 12.6 10.0-20.0 Serum Glucose 115 H 74-106 mg/dL Calcium Level 9.1 8.7-10.4 mg/dL Total Bilirubin 0.6 0.2-1.0 mg/dL Aspartate Amino Transferase (AST) 18 13-40 U/L Alanine Aminotransferase (ALT) 31 7-40 U/L Alkaline Phosphatase 73 46-116 U/L Total Protein 6.3 5.7-8.2 g/dL Albumin 4.0 3.2-4.8 g/dL Urine Color Light-yellow Yellow Urine Clarity Clear Clear Urine pH 5.5 5.0-9.0 Urine Specific [place] 1.012 1.001-1.035 Urine Protein Negative Negative Urine Ketones Negative Negative Urine Blood Negative Negative /uL Urine Nitrite Negative Negative Urine Bilirubin Negative Negative Urine Urobilinogen Normal Negative mg/dL Urine Leukocyte Esterase Negative Negative /uL Urine RBC 1 0 - 4 /hpf Urine Microscopic WBC 1 0-5 /HPF Urine Squamous Epithelial Cells Few <5 /hpf Urine Bacteria Few H None Seen /hpf Urine Glucose Normal Normal mg/dL Imaging: CT abdomen pelvis IMPRESSION: 1. No acute abdominal or pelvic findings. 2. Cholecystectomy. Renal ultrasound IMPRESSION: 1. Unremarkable examination. Assessment: Abdominal pain Left Flank pain Plan: Discussed with Dr. Salmeron Protonix and Carafate Monitor lab Recommend outpatient follow-up in GI lab for further GI workup Please repeat GI services if symptoms worsen Thank you for the consult Date of Service: Jul 18, 2024 Billing Provider: SAYRA BLAKELY Common Visit Codes: CONSULT ONLY Consultation Codes: [id number] CONSULT <45MIN SAYRA BLAKELY Jul 18, 2024 14:14
[2024-07-19] VITALS (8 sets, daily range): BP systolic 90–110; BP diastolic 48–60; PULSE 60–78; RESP 14–24; TEMP 97.1–98; O2SAT 94–97
[2024-07-19] MEDS ORDERED: PANT40T PO (09:40)
--- NOTE | 2024-07-19 09:41 | DVHPN2 ---
Reviewed: Care Plan, H&P, Labs, Medications, Previous Orders, Radiology Changes from previous H/P or p: No Changes Gastrointestinal: Abdominal Pain Musculoskeletal: other (Left-sided flank pain) Objective Vitals Vital Signs Date Time Temp Pulse Resp B/P (MAP) Pulse Ox O2 Delivery O2 Flow Rate FiO2 07/19/24 09:00 97.8 69 20 108/54 (72) 96 97.8 07/18/24 20:00 Room Air* 0 21 Intake/Output Intake and Output 07/19/24 07:00 Intake Total 2990 ml Balance 2990 ml Intake Oral 2790 ml IV Total 200 ml # Voids 6 Medications Current Medications Medications Dose Ordered Sig/Elvira Route Start Time Stop Time Status Last Admin Dose Admin Acetaminophen/ Hydrocodone Bitart 1 tab Q4HP PRN PO 07/17/24 11:15 07/19/24 08:33 1 TAB Ondansetron HCl 4 mg Q4HP PRN IV 07/17/24 11:15 07/18/24 08:24 4 MG Acetaminophen 650 mg Q6HP PRN PO 07/17/24 11:15 Morphine Sulfate 2 mg Q4HPRN PRN IV 07/17/24 11:15 07/18/24 08:25 2 MG Pantoprazole Sodium 40 mg DAILY IV 07/18/24 10:00 07/19/24 08:30 40 MG Piperacillin Sod/ Tazobactam Sod 100 ml @ 25 mls/hr Q8HR IV 07/17/24 14:00 07/19/24 06:21 25 MLS/HR Laboratory Results Laboratory Tests 07/18/24 06:15 Urinalysis Test 07/17/24 08:30 Urine Color Light-yellow (Yellow) Urine Clarity Clear (Clear) Urine pH 5.5 (5.0-9.0) Urine Specific [place] 1.012 (1.001-1.035) Urine Protein Negative (Negative) Urine Ketones Negative (Negative) Urine Blood Negative /uL (Negative) Urine Nitrite Negative (Negative) Urine Bilirubin Negative (Negative) Urine Urobilinogen Normal mg/dL (Negative) Urine Leukocyte Esterase Negative /uL (Negative) Urine RBC 1 /hpf (0 - 4) Urine Microscopic WBC 1 /HPF (0-5) Urine Squamous Epithelial Cells Few /hpf (<5) Urine Bacteria Few /hpf (None Seen) H Urine Glucose Normal mg/dL (Normal) Labs and/or images reviewed: Labs reviewed by me, Image(s) reviewed by me Assessment/Plan Assessment/Plan Acute left flank pain: CT abdomen pelvis without contrast negative all labs normal UA negative for infection: Consult for GI Dr. 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
--- NOTE | 2024-07-19 09:44 | DVHDS2 ---
Discharge Summary Date of Admission Jul 17, 2024 at 11:14 Date of Discharge: Jul 19, 2024 Admitting Diagnosis Abdominal pain Wounds: None Labs/Diagnostic Data: Laboratory Results Test 07/18/24 06:15 07/17/24 08:30 White Blood Count 8.5 10^3/uL (4.4-10.8) Red Blood Count 4.41 10^6/uL (4.0-5.20) Hemoglobin 13.5 g/dL (12.2-16.2) Hematocrit 38.6 % (36.0-46.0) Mean Corpuscular Volume 87.5 fL (80.0-100.0) Mean Corpuscular Hemoglobin 30.7 pg (28.0-32.0) Mean Corpuscular Hemoglobin Concent 35.1 g/dL (32.0-36.0) Red Cell Distribution Width 13.3 % (11.8-14.3) Platelet Count 177 10^3/uL (140-450) Mean Platelet Volume 8.6 fL (6.9-10.8) Neutrophils (%) (Auto) 70.5 % (37.0-80.0) Lymphocytes (%) (Auto) 21.5 % (10.0-50.0) Monocytes (%) (Auto) 6.0 % (0.0-12.0) Eosinophils (%) (Auto) 1.6 % (0.0-7.0) Basophils (%) (Auto) 0.4 % (0.0-2.0) Neutrophils # (Auto) 6.0 10 ^3/uL (1.6-8.6) Lymphocytes # (Auto) 1.8 10 ^3/uL (0.4-5.4) Monocytes # (Auto) 0.5 10 ^3/uL (0-1.3) Eosinophils # (Auto) 0.1 10 ^3/uL (0-0.8) Basophils # (Auto) 0 10 ^3/uL (0-0.2) Nucleated Red Blood Cells 0.0 % Sodium Level 138 mmol/L (136-145) Potassium Level 4.4 mmol/L (3.5-5.1) Chloride Level 107 mmol/L (98-107) Carbon Dioxide Level 26 mmol/L (20-31) Anion Gap 5 (5-15) Blood Urea Nitrogen 12 mg/dL (9-23) Creatinine 0.95 mg/dL (0.550-1.02) Glomerular Filtration Rate Calc 73 mL/min (>90) BUN/Creatinine Ratio 12.6 (10.0-20.0) Serum Glucose 115 mg/dL (74-106) Calcium Level 9.1 mg/dL (8.7-10.4) Total Bilirubin 0.6 mg/dL (0.2-1.0) Aspartate Amino Transferase (AST) 18 U/L (13-40) Alanine Aminotransferase (ALT) 31 U/L (7-40) Alkaline Phosphatase 73 U/L (46-116) Total Protein 6.3 g/dL (5.7-8.2) Albumin 4.0 g/dL (3.2-4.8) Urine Color Light-yellow (Yellow) Urine Clarity Clear (Clear) Urine pH 5.5 (5.0-9.0) Urine Specific [place] 1.012 (1.001-1.035) Urine Protein Negative (Negative) Urine Ketones Negative (Negative) Urine Blood Negative /uL (Negative) Urine Nitrite Negative (Negative) Urine Bilirubin Negative (Negative) Urine Urobilinogen Normal mg/dL (Negative) Urine Leukocyte Esterase Negative /uL (Negative) Urine RBC 1 /hpf (0 - 4) Urine Microscopic WBC 1 /HPF (0-5) Urine Squamous Epithelial Cells Few /hpf (<5) Urine Bacteria Few /hpf (None Seen) Urine Glucose Normal mg/dL (Normal) Other Laboratory Tests 07/18/24 06:15 Brief Hx & Hospital Course: 48-year-old female with a history of rectal bleed history of removal of colon polyps history of urinary tract infection came in for left flank and abdominal pain. CT abdomen pelvis without contrast negative all labs were normal . Hemoglobin 15.4. UTI negative for infection. Hemoglobin stable GI Dr. Nicko Salmeron was consulted no further GI workup. Patient discharged home. Consults/Reason for consult GI Dr. Nicko Salmeron Operations or Procedures CT abdomen pelvis without contrast Condition at Discharge: Fair Final Diagnosis/Problems List Acute left flank pain: CT abdomen pelvis without contrast negative all labs normal UA negative for infection: Consult for GI Dr. Nicko Salmeron appreciated, no further GI workup History of Urinary tract infections History of rectal bleed History of removal of colon polyps Discharge Disposition: Home Discharge Instruct/Medications Diet: Regular Activity: Light activity Follow Up/Referral: Use medications as prescribed Follow up with your primary Dr. Medications: Pantoprazole Transmitted to pharmacy 35 (Time taken for discharge summary 35 minutes) Discharge Statement: "Patient was advised to return to the ER or call 911 if any headaches, dizziness, shortness of breath, chest pain, abdominal pain, bleeding, fevers, or worsening of medical condition. Patient was counseled about treatment plan, medications, possible side effects, patientverbalized understanding. All questions were answered to the best of my ability. This discharge took greater then 30 minutes in planning, reviewing documentation, counseling the patient, and discussing with other team members." ASSESSMENT ASSESSMENT Hospital Course Improved Assessment Acute left flank pain: CT abdomen pelvis without contrast negative all labs normal UA negative for infection: Consult for GI Dr. Nicko Salmeron appreciated, no further GI workup History of Urinary tract infections History of rectal bleed History of removal of colon polyps Date of Service: Jul 19, 2024 Billing Provider: COURTNEY BLAKELY MD Common Visit Codes: [id number] DISCH DAY >30min COURTNEY BLAKELY MD Jul 19, 2024 09:44
[2024-07-19] MEDS ORDERED: SUCR1TAB31 PO (10:20)
--- NOTE | 2024-07-19 15:18 | PRN ---
Misceleneous Note Note Note July 19, 2024 Subjective: Patient was to be discharged home however she continues to have left-sided abdominal pain and wanted another opinion. Patient was seen by Alcira Motta who recommended outpatient follow up. Patient continues to have left flank and left upper quadrant abdominal pain. She denies hematemesis, melena, hematochezia. She denies prior history of EGD. She denies fever or chills. She denies pain with inspiration or movement. The pain is made worse with eating. Current Medications Medications (Trade) Dose Ordered Sig/Elvira Route Start Time Stop Time Status Last Admin Dose Admin Acetaminophen/ Hydrocodone Bitart ([place] 5/325MG Tab) 1 tab Q4HP PRN PO 07/17/24 11:15 07/19/24 12:53 Ondansetron HCl (Zofran) 4 mg Q4HP PRN IV 07/17/24 11:15 07/18/24 08:24 Acetaminophen (Tylenol Tablet) 650 mg Q6HP PRN PO 07/17/24 11:15 Morphine Sulfate 2 mg Q4HPRN PRN IV 07/17/24 11:15 07/18/24 08:25 Pantoprazole Sodium (Protonix) 40 mg DAILY IV 07/18/24 10:00 07/19/24 08:30 Piperacillin Sod/ Tazobactam Sod 100 ml @ 25 mls/hr Q8HR IV 07/17/24 14:00 07/19/24 12:55 Vital Signs Date Time Temp Pulse Resp B/P (MAP) Pulse Ox O2 Delivery O2 Flow Rate FiO2 07/19/24 13:00 98.0 64 16 103/48 (66) 97 98.0 07/19/24 08:00 Room Air* 0 21 Physical exam: General: Alert and oriented, obese female lying in bed HEENT: NC/AT EOMI, no icterus Heart: Regular rate and rhythm no murmurs rubs or gallops Lungs: Clear to auscultation bilaterally anteriorly Abdomen: Soft, nondistended, mild epigastric and left upper quadrant tenderness to palpation Extremity no clubbing cyanosis or edema Labs Test 07/18/24 06:15 07/17/24 08:30 Range/Units White Blood Count 8.5 4.4-10.8 10^3/uL Red Blood Count 4.41 4.0-5.20 10^6/uL Hemoglobin 13.5 12.2-16.2 g/dL Hematocrit 38.6 # 36.0-46.0 % Mean Corpuscular Volume 87.5 80.0-100.0 fL Mean Corpuscular Hemoglobin 30.7 28.0-32.0 pg Mean Corpuscular Hemoglobin Concent 35.1 32.0-36.0 g/dL Red Cell Distribution Width 13.3 11.8-14.3 % Platelet Count 177 140-450 10^3/uL Mean Platelet Volume 8.6 6.9-10.8 fL Neutrophils (%) (Auto) 70.5 37.0-80.0 % Lymphocytes (%) (Auto) 21.5 10.0-50.0 % Monocytes (%) (Auto) 6.0 0.0-12.0 % Eosinophils (%) (Auto) 1.6 0.0-7.0 % Basophils (%) (Auto) 0.4 0.0-2.0 % Neutrophils # (Auto) 6.0 1.6-8.6 10 ^3/uL Lymphocytes # (Auto) 1.8 0.4-5.4 10 ^3/uL Monocytes # (Auto) 0.5 0-1.3 10 ^3/uL Eosinophils # (Auto) 0.1 0-0.8 10 ^3/uL Basophils # (Auto) 0 0-0.2 10 ^3/uL Nucleated Red Blood Cells 0.0 % Sodium Level 138 136-145 mmol/L Potassium Level 4.4 3.5-5.1 mmol/L Chloride Level 107 98-107 mmol/L Carbon Dioxide Level 26 20-31 mmol/L Anion Gap 5 5-15 Blood Urea Nitrogen 12 9-23 mg/dL Creatinine 0.95 0.550-1.02 mg/dL Glomerular Filtration Rate Calc 73 >90 mL/min BUN/Creatinine Ratio 12.6 10.0-20.0 Serum Glucose 115 H 74-106 mg/dL Calcium Level 9.1 8.7-10.4 mg/dL Total Bilirubin 0.6 0.2-1.0 mg/dL Aspartate Amino Transferase (AST) 18 13-40 U/L Alanine Aminotransferase (ALT) 31 7-40 U/L Alkaline Phosphatase 73 46-116 U/L Total Protein 6.3 5.7-8.2 g/dL Albumin 4.0 3.2-4.8 g/dL Urine Color Light-yellow Yellow Urine Clarity Clear Clear Urine pH 5.5 5.0-9.0 Urine Specific [place] 1.012 1.001-1.035 Urine Protein Negative Negative Urine Ketones Negative Negative Urine Blood Negative Negative /uL Urine Nitrite Negative Negative Urine Bilirubin Negative Negative Urine Urobilinogen Normal Negative mg/dL Urine Leukocyte Esterase Negative Negative /uL Urine RBC 1 0 - 4 /hpf Urine Microscopic WBC 1 0-5 /HPF Urine Squamous Epithelial Cells Few <5 /hpf Urine Bacteria Few H None Seen /hpf Urine Glucose Normal Normal mg/dL Impression: 1. Left upper quadrant left flank and epigastric pain made worse with eating and tenderness to palpation 2. Morbid obesity 3. History of colonoscopy in 2022 showing hemorrhoids and small polyps Differential diagnosis includes peptic ulcer disease versus gastritis versus musculoskeletal etiology versus other Recommendations: 1. Diet as tolerated 2. Dr. Salmeron will follow up tomorrow and patient will be scheduled for endoscop y 3. current medications 4. Consider further workup if endoscopy is negative ABHIJIT DAMON MD Jul 19, 2024 15:18
[2024-07-19] MEDS ORDERED: LORazepam 0.5 MG TAB PO PRN (22:30)
[2024-07-20] VITALS (8 sets, daily range): BP systolic 94–111; BP diastolic 48–69; PULSE 65–75; RESP 14–16; TEMP 97.8–98.2; O2SAT 94–98
--- NOTE | 2024-07-20 11:05 | DVHPN2 ---
Reviewed: Care Plan, H&P, Labs, Medications, Previous Orders, Radiology Changes from previous H/P or p: No Changes Gastrointestinal: Abdominal Pain Musculoskeletal: other (Left-sided flank pain) Objective Vitals Vital Signs Date Time Temp Pulse Resp B/P (MAP) Pulse Ox O2 Delivery O2 Flow Rate FiO2 07/20/24 08:30 97.8 74 16 102/58 (73) 94 97.8 07/20/24 08:00 Room Air* 0 21 Intake/Output Intake and Output 07/20/24 07:00 Intake Total 3812 ml Balance 3812 ml Intake Oral 3612 ml IV Total 200 ml # Voids 8 Medications Current Medications Medications Dose Ordered Sig/Elvira Route Start Time Stop Time Status Last Admin Dose Admin Acetaminophen/ Hydrocodone Bitart 1 tab Q4HP PRN PO 07/17/24 11:15 07/20/24 07:00 1 TAB Ondansetron HCl 4 mg Q4HP PRN IV 07/17/24 11:15 07/18/24 08:24 4 MG Acetaminophen 650 mg Q6HP PRN PO 07/17/24 11:15 Morphine Sulfate 2 mg Q4HPRN PRN IV 07/17/24 11:15 07/18/24 08:25 2 MG Pantoprazole Sodium 40 mg DAILY IV 07/18/24 10:00 07/20/24 09:16 40 MG Piperacillin Sod/ Tazobactam Sod 100 ml @ 25 mls/hr Q8HR IV 07/17/24 14:00 07/20/24 05:18 25 MLS/HR Lorazepam 0.5 mg Q8HP PRN PO 07/19/24 22:30 Laboratory Results Laboratory Tests 07/18/24 06:15 Urinalysis Test 07/17/24 08:30 Urine Color Light-yellow (Yellow) Urine Clarity Clear (Clear) Urine pH 5.5 (5.0-9.0) Urine Specific [place] 1.012 (1.001-1.035) Urine Protein Negative (Negative) Urine Ketones Negative (Negative) Urine Blood Negative /uL (Negative) Urine Nitrite Negative (Negative) Urine Bilirubin Negative (Negative) Urine Urobilinogen Normal mg/dL (Negative) Urine Leukocyte Esterase Negative /uL (Negative) Urine RBC 1 /hpf (0 - 4) Urine Microscopic WBC 1 /HPF (0-5) Urine Squamous Epithelial Cells Few /hpf (<5) Urine Bacteria Few /hpf (None Seen) H Urine Glucose Normal mg/dL (Normal) Labs and/or images reviewed: Labs reviewed by me, Image(s) reviewed by me Assessment/Plan Assessment/Plan Acute left flank pain: CT abdomen pelvis without contrast negative all labs normal UA negative for infection: Consult for GI Dr. Nicko Salmeron appreciated, no further GI workup, patient requesting colonoscopy History of Urinary tract infections History of rectal bleed secondary to hemorrhoids and polyps by colonoscopy 2022 History of removal of colon polyps Possible endoscopy by GI Dr. Nicko Salmeron Mon Plan discussed with: Patient Date of Service: Jul 20, 2024 Billing Provider: COURTNEY BLAKELY MD Common Visit Codes: [id number] INP/OBS CARE(HIGH) COURTNEY BLAKELY MD Jul 20, 2024 11:04
[2024-07-20] MEDS: DOCUSATE SOD 100 MG CAP PO ONE (13:29)
[2024-07-20] MEDS: POLYETHYLENE GLYCOL 17 GM PWDR PO ONE (13:29)
--- NOTE | 2024-07-20 21:20 | DVHPN2 ---
Progress Note - Dictate Date Seen: Jul 20, 2024 Medical Necessity Reason Pt with a Central, PICC or Fol: No Subjective No new complaints Patient continues to complain of some left upper quadrant pain This was also been constipated and has not had a bowel movement for 2-3 days There was no GI bleeding reported. Patient had a colonoscopy about a year and a half ago at our hospital which I performed in January of 2023 Operative Report DATE OF OPERATION: 01/31/23 PROCEDURE: Colonoscopy with biopsy. PREOPERATIVE INDICATION: The patient is a 47 -year-old female undergoing colonoscopy for history of rectal bleeding and colon cancer screening POSTOPERATIVE DIAGNOSES: 1. Patient had 1+ slightly inflamed internal and 2+ external hemorrhoids with no active bleeding at this time 2. There were 3 diminutive 1 mm benign-appearing sigmoid polyps that were seen removed by cold biopsy forceps 3. Otherwise complete and normal colonoscopy examination up to the cecum and terminal ileum vital signs Vital Sign Date Time Temp Pulse Resp B/P (MAP) Pulse Ox O2 Delivery O2 Flow Rate FiO2 07/20/24 16:45 98.2 66 16 111/69 (83) 95 98.2 07/20/24 08:00 Room Air* 0 21 Total Intake and Output 07/19/24 07/19/24 07/20/24 15:00 23:00 07:00 Intake Total 593 ml 2619 ml 600 ml Balance 593 ml 2619 ml 600 ml medications Current Medications Medications Dose Ordered Sig/Elvira Route Start Time Stop Time Status Last Admin Dose Admin Acetaminophen/ Hydrocodone Bitart 1 tab Q4HP PRN PO 07/17/24 11:15 07/20/24 19:55 1 TAB Ondansetron HCl 4 mg Q4HP PRN IV 07/17/24 11:15 07/18/24 08:24 4 MG Acetaminophen 650 mg Q6HP PRN PO 07/17/24 11:15 Morphine Sulfate 2 mg Q4HPRN PRN IV 07/17/24 11:15 07/18/24 08:25 2 MG Pantoprazole Sodium 40 mg DAILY IV 07/18/24 10:00 07/20/24 09:16 40 MG Piperacillin Sod/ Tazobactam Sod 100 ml @ 25 mls/hr Q8HR IV 07/17/24 14:00 07/20/24 13:29 25 MLS/HR Lorazepam 0.5 mg Q8HP PRN PO 07/19/24 22:30 Polyethylene Glycol 17 gm DAILYPRN PRN PO 07/21/24 10:00 Docusate Sodium 100 mg BIDPRN PRN PO 07/20/24 22:00 objective General: Alert and oriented, obese female lying in bed HEENT: NC/AT EOMI, no icterus Heart: Regular rate and rhythm no murmurs rubs or gallops Lungs: Clear to auscultation bilaterally anteriorly Abdomen: Soft, nondistended, mild epigastric and left upper quadrant tenderness to palpation Extremity no clubbing cyanosis or edema laboratory and microbiology Laboratory Tests 07/18/24 06:15 Test 07/18/24 06:15 Range/Units Serum Glucose 115 H 74-106 mg/dL Problems(with codes): (1) Constipation (2) Epigastric pain (3) Left upper quadrant pain (4) Acute abdominal pain Prognosis Plan Continue supportive care MiraLax 17 g p.o. daily Colace 100 mg p.o. twice a day was reassured that at this time she does not likely need to have a colonoscopy I will schedule him for an endoscopy on 07/21/2024 to rule out peptic ulcer disease rule out GERD She was also asked to ambulate Outpatient follow up with me after the above workup for ongoing GI management Dietary Evaluation Review Recommendations by RD: Dietary education by RD Comments: 1) Continue to promote optimate PO intake 2) Collect HbA1c 3) Refer to outpatient RD for weight management 4) F/u with gastroenterology 5) Consider limiting intake of insoluble fiber and other gas-producing foods to see if symptoms resolve. Keep food log to determine which irritate GI. Expected Outcomes/Goals: 1) appetite and labs to improve 2) f/u in 5 days Plan discussed with: Patient, Spouse, Other (Nurse) VITO DUMAS MD Jul 20, 2024 21:20
[2024-07-20] MEDS ORDERED: DOCUSATE SOD 100 MG CAP PO PRN (22:00)
[2024-07-21] VITALS (8 sets, daily range): BP systolic 107–162; BP diastolic 57–90; PULSE 67–94; RESP 15–20; TEMP 97.4–99.5; O2SAT 92–100
[2024-07-21] MEDS ORDERED: SODIUM CHLORIDE LOCK 10 ML ONE (07:54)
[2024-07-21] MEDS ORDERED: POLYETHYLENE GLYCOL 17 GM PWDR PO PRN (10:00)
--- NOTE | 2024-07-21 11:05 | DVHPN2 ---
Reviewed: Care Plan, H&P, Labs, Medications, Previous Orders, Radiology Changes from previous H/P or p: No Changes Gastrointestinal: Abdominal Pain Musculoskeletal: other (Left-sided flank pain) Objective Vitals Vital Signs Date Time Temp Pulse Resp B/P (MAP) Pulse Ox O2 Delivery O2 Flow Rate FiO2 07/21/24 09:00 97.4 73 16 115/62 (79) 92 97.4 07/21/24 07:54 Room Air* 0 21 Intake/Output Intake and Output 07/21/24 07:00 Intake Total 2080 ml Balance 2080 ml Intake Oral 1680 ml IV Total 400 ml # Voids 8 Medications Current Medications Medications Dose Ordered Sig/Elvira Route Start Time Stop Time Status Last Admin Dose Admin Acetaminophen/ Hydrocodone Bitart 1 tab Q4HP PRN PO 07/17/24 11:15 07/21/24 06:58 1 TAB Ondansetron HCl 4 mg Q4HP PRN IV 07/17/24 11:15 07/18/24 08:24 4 MG Acetaminophen 650 mg Q6HP PRN PO 07/17/24 11:15 Morphine Sulfate 2 mg Q4HPRN PRN IV 07/17/24 11:15 07/18/24 08:25 2 MG Pantoprazole Sodium 40 mg DAILY IV 07/18/24 10:00 07/21/24 09:09 40 MG Piperacillin Sod/ Tazobactam Sod 100 ml @ 25 mls/hr Q8HR IV 07/17/24 14:00 07/21/24 05:04 25 MLS/HR Lorazepam 0.5 mg Q8HP PRN PO 07/19/24 22:30 Polyethylene Glycol 17 gm DAILYPRN PRN PO 07/21/24 10:00 Docusate Sodium 100 mg BIDPRN PRN PO 07/20/24 22:00 Laboratory Results Laboratory Tests 07/18/24 06:15 Urinalysis Test 07/17/24 08:30 Urine Color Light-yellow (Yellow) Urine Clarity Clear (Clear) Urine pH 5.5 (5.0-9.0) Urine Specific [place] 1.012 (1.001-1.035) Urine Protein Negative (Negative) Urine Ketones Negative (Negative) Urine Blood Negative /uL (Negative) Urine Nitrite Negative (Negative) Urine Bilirubin Negative (Negative) Urine Urobilinogen Normal mg/dL (Negative) Urine Leukocyte Esterase Negative /uL (Negative) Urine RBC 1 /hpf (0 - 4) Urine Microscopic WBC 1 /HPF (0-5) Urine Squamous Epithelial Cells Few /hpf (<5) Urine Bacteria Few /hpf (None Seen) H Urine Glucose Normal mg/dL (Normal) Labs and/or images reviewed: Labs reviewed by me, Image(s) reviewed by me Assessment/Plan Assessment/Plan Acute left flank pain: CT abdomen pelvis without contrast negative all labs normal UA negative for infection: Consult for GI Dr. Nicko Salmeron appreciated, no further GI workup, patient requesting colonoscopy History of Urinary tract infections History of rectal bleed secondary to hemorrhoids and polyps by colonoscopy 2022 History of removal of colon polyps Getting EGD by Dr. Nicko Salmeron today, colonoscopy not needed at this time per Dr.N Salmeron and the was informed. Plan discussed with: Patient My Orders Orders - COURTNEY BLAKELY MD Procedure Category Date Status Time * Gi D[facility] [place] CONS 07/20/24 Transmitted 11:16 Date of Service: Jul 21, 2024 Billing Provider: COURTNEY BLAKELY MD Common Visit Codes: [id number] INP/OBS CARE(HIGH) COURTNEY BLAKELY MD Jul 21, 2024 11:05
[2024-07-21] MEDS: LIDOCAINE VISCOUS 2% 15ML UD ONE (15:44)
[2024-07-21] MEDS: fentaNYL CITRATE 100 MCG/2 ML VL ONE (15:46)
[2024-07-21] MEDS: MIDAZOLAM HCL 5 MG/ML-1ML VIAL ONE (15:46)
[2024-07-21] MEDS: diphenhdrAMINE HCL 50 MG/1 ML VL ONE (15:46)
--- NOTE | 2024-07-21 15:57 | DVHOP2 ---
Operative Report DATE OF OPERATION: 07/21/24 PROCEDURE: Upper Endoscopy with biopsy. PREOPERATIVE INDICATION: The patient is a 48 -year-old female undergoing endoscopy for left upper quadrant pain and left flank pain POSTOPERATIVE DIAGNOSES: 1. Minimal gastritis and mild duodenitis of the duodenal bulb 2. 0.5-1 cm sliding-type hiatal hernia with no significant esophagitis 3. Otherwise normal examination up to the 2nd and 3rd part of the duodenum PROCEDURE PERFORMED BY: Vito Salmeron GI NURSE: Carol SCOPE: Olympus videoendoscope. ASA CLASS: PREOPERATIVE MEDICATIONS: Versed 2 mg, Fentanyl 50 mcg, Benadryl 50 mg I administered moderate sedation throughout this _7_ minutes procedure. An independent trained observer pushed medications at my direction, and monitored the patient's level of consciousness and physiological status throughout. PROCEDURE IN DETAIL: After obtaining an informed consent, the patient was placed on left lateral decubitus position. The patient was then sedated with the above medications. A bite block was placed between her teeth. The endoscope was then passed through the oropharynx, into the esophagus, and through the stomach and pylorus up to the second and third part of the duodenum. The endoscope was then withdrawn. The 2nd and 3rd part of the duodenal were normal. Duodenal bulb showed mild duodenitis with some hyperemia The pre-pyloric area and antrum showed minimal gastritis. Duodenal and gastric biopsies were obtained. On retroflexion the fundus and cardia and angularis were normal. The endoscope was then withdrawn into the distal esophagus Patient had a 0.5-1 cm sliding-type hiatal hernia but no significant esophagitis. GE junction biopsies were obtained. The remaining distal and proximal esophagus and oropharynx were unremarkable The patient tolerated the procedure well without difficulty. COMPLICATIONS : None SPECIMENS: Duodenal biopsies Gastric biopsies GE junction biopsies DISPOSITION: Transfer back to the floor Stable PLAN: 1. Await for biopsy result 2. Will place pt on Protonix 40 mg p.o. twice a day 3. Carafate 1 g p.o. twice a day 4. DC aspirin NSAIDs smoking alcohol 5. Patient appears to have possible musculoskeletal pain or pain along the dermatome, if the pain persists get a lumbosacral spine x-ray VITO SALMERON MD Jul 21, 2024 15:57
--- NOTE | 2024-07-21 17:52 | DVH ---
EXAM: XY THORACO LUMBAR INDICATION: L flank pain possibly musculokeletal COMPARISON: None TECHNIQUE: 2 views of the thoracic spine were obtained. Findings: There is no evidence of an acute fracture, spondylolysis, or spondylolisthesis. The vertebral body heights and disc spaces are well-maintained. No blastic or lytic lesions are appreciated. No radiopaque foreign bodies. No superficial soft tissue abnormalities. Impression: 1. No acute osseous abnormality.
[2024-07-21] MEDS: SUCRALFATE 1 GM/10 ML ORAL SUSP PO SCH (18:21)
[2024-07-22 01:00] VITALS: BP 112/73; PULSE 81; RESP 18; TEMP 97.7; O2SAT 95
[2024-07-22 05:00] VITALS: BP 130/79; PULSE 74; RESP 16; O2SAT 94
[2024-07-22 09:00] VITALS: BP 126/69; PULSE 76; RESP 18; TEMP 98; O2SAT 96
--- NOTE | 2024-07-22 11:21 | DVHPN2 ---
Progress Note Date Seen: Jul 22, 2024 Resident Creating Document: MARYA DOAN RESIDENT Medical Necessity Reason Pt with a Central, PICC or Fol: No Subjective Review of Systems No new complaints Patient continues to complain of some left upper quadrant pain This was also been constipated and has not had a bowel movement for 2-3 days There was no GI bleeding reported. Patient had a colonoscopy about a year and a half ago at our hospital which was performed by Dr. Salmeron in January 2023 Objective vital signs Vital Sign Date Time Temp Pulse Resp B/P (MAP) Pulse Ox O2 Delivery O2 Flow Rate FiO2 07/22/24 09:35 76 18 126/69 07/22/24 09:00 98.0 96 98.0 07/22/24 08:00 Room Air* 0 21 Total Intake and Output 07/21/24 07/21/24 07/22/24 15:00 23:00 07:00 Intake Total 100 ml 1020 ml 700 ml Balance 100 ml 1020 ml 700 ml medications Current Medications Medications Dose Ordered Sig/Elvira Route Start Time Stop Time Status Last Admin Dose Admin Acetaminophen/ Hydrocodone Bitart 1 tab Q4HP PRN PO 07/17/24 11:15 07/21/24 22:10 1 TAB Ondansetron HCl 4 mg Q4HP PRN IV 07/17/24 11:15 07/18/24 08:24 4 MG Acetaminophen 650 mg Q6HP PRN PO 07/17/24 11:15 Morphine Sulfate 2 mg Q4HPRN PRN IV 07/17/24 11:15 07/22/24 09:35 2 MG Pantoprazole Sodium 40 mg DAILY IV 07/18/24 10:00 07/22/24 09:24 40 MG Piperacillin Sod/ Tazobactam Sod 100 ml @ 25 mls/hr Q8HR IV 07/17/24 14:00 07/22/24 05:29 25 MLS/HR Lorazepam 0.5 mg Q8HP PRN PO 07/19/24 22:30 Polyethylene Glycol 17 gm DAILYPRN PRN PO 07/21/24 10:00 Docusate Sodium 100 mg BIDPRN PRN PO 07/20/24 22:00 Sucralfate 1 gm QID@0600,1130,1700,2200 PO 07/21/24 17:00 07/22/24 09:24 1 GM Examination General Appearance: Cooperative. Well developed. Well nourished. NAD Head Exam: Normal inspection Neck Exam: Normal inspection. Non-tender. Normal alignment Pulmonary/Respiratory: Chest non-tender. Clear bilateral breath sounds, no crackles, no wheezing. Cardiovascular/Chest: Regular rate and rhythm. No murmurs. No JVD. Abdominal Exam: Normal bowel sounds. Soft. normal abdomen, no visible veins, No hepatospenomegaly. No masses. Mild epigastric and left upper quadrant tenderness to palpation Ankle Exam: Negative ankle edema Neuro/Mental Status: A&O x4. Coherent. Skin Exam: Normal inspection. Normal color. Warm. Dry laboratory and microbiology Laboratory Tests 07/18/24 06:15 Test 07/18/24 06:15 Range/Units Serum Glucose 115 H 74-106 mg/dL Labs and/or images reviewed: Labs reviewed by me, Image(s) reviewed by me Problem List/Assessment/Plan Problem List/Assessment/Plan Epigastric pain Shingles Gastritis Left upper quadrant pain Acute intractable abdominal pain Constipation Plan Continue supportive care MiraLax 17 g p.o. daily Colace 100 mg p.o. twice a day was reassured that at this time she does not likely need to have a colonoscopy Also be completed on 07/21/2024 showed minimal gastritis and mild duodenitis the duodenal bulb. 0.5-1 cm sliding-type hiatal hernia. Otherwise normal examination up to the 2nd and 3rd part of the duodenum. She was also asked to ambulate Outpatient follow up with Dr. Salmeron for ongoing GI management Protonix 40 mg b.i.d. Carafate 1 g p.o. twice a day Discontinue aspirin, NSAIDs, smoking and alcohol Shingles management as per hospitalist Plan discussed with: Patient, Other (RN) Dietary Evaluation Review Recommendations by RD: Dietary education by RD Comments: 1) Continue to promote optimate PO intake 2) Collect HbA1c 3) Refer to outpatient RD for weight management 4) F/u with gastroenterology 5) Consider limiting intake of insoluble fiber and other gas-producing foods to see if symptoms resolve. Keep food log to determine which irritate GI. Expected Outcomes/Goals: 1) appetite and labs to improve 2) f/u in 5 days MARYA DOAN RESIDENT Jul 22, 2024 11:21
[2024-07-22] MEDS ORDERED: ACYC5CRE4 TOP (11:45)
[2024-07-22] MEDS ORDERED: ACYC400T16 PO (11:45)
[2024-07-22] MEDS ORDERED: TRAM-626 PO (11:46)
--- NOTE | 2024-07-22 11:49 | DVHPN2 ---
Reviewed: Care Plan, H&P, Labs, Medications, Previous Orders, Radiology Changes from previous H/P or p: No Changes Gastrointestinal: Abdominal Pain Musculoskeletal: other (Left-sided flank pain) Objective Vitals Vital Signs Date Time Temp Pulse Resp B/P (MAP) Pulse Ox O2 Delivery O2 Flow Rate FiO2 07/22/24 09:35 76 18 126/69 07/22/24 09:00 98.0 96 98.0 07/22/24 08:00 Room Air* 0 21 Intake/Output Intake and Output 07/22/24 07:00 Intake Total 1820 ml Balance 1820 ml Intake Oral 1520 ml IV Total 300 ml # Voids 7 # Bowel Movements 2 Medications Current Medications Medications Dose Ordered Sig/Elvira Route Start Time Stop Time Status Last Admin Dose Admin Acetaminophen/ Hydrocodone Bitart 1 tab Q4HP PRN PO 07/17/24 11:15 07/21/24 22:10 1 TAB Ondansetron HCl 4 mg Q4HP PRN IV 07/17/24 11:15 07/18/24 08:24 4 MG Acetaminophen 650 mg Q6HP PRN PO 07/17/24 11:15 Morphine Sulfate 2 mg Q4HPRN PRN IV 07/17/24 11:15 07/22/24 09:35 2 MG Pantoprazole Sodium 40 mg DAILY IV 07/18/24 10:00 07/22/24 09:24 40 MG Piperacillin Sod/ Tazobactam Sod 100 ml @ 25 mls/hr Q8HR IV 07/17/24 14:00 07/22/24 05:29 25 MLS/HR Lorazepam 0.5 mg Q8HP PRN PO 07/19/24 22:30 Polyethylene Glycol 17 gm DAILYPRN PRN PO 07/21/24 10:00 Docusate Sodium 100 mg BIDPRN PRN PO 07/20/24 22:00 Sucralfate 1 gm QID@0600,1130,1700,2200 PO 07/21/24 17:00 07/22/24 09:24 1 GM Laboratory Results Laboratory Tests 07/18/24 06:15 Urinalysis Test 07/17/24 08:30 Urine Color Light-yellow (Yellow) Urine Clarity Clear (Clear) Urine pH 5.5 (5.0-9.0) Urine Specific [place] 1.012 (1.001-1.035) Urine Protein Negative (Negative) Urine Ketones Negative (Negative) Urine Blood Negative /uL (Negative) Urine Nitrite Negative (Negative) Urine Bilirubin Negative (Negative) Urine Urobilinogen Normal mg/dL (Negative) Urine Leukocyte Esterase Negative /uL (Negative) Urine RBC 1 /hpf (0 - 4) Urine Microscopic WBC 1 /HPF (0-5) Urine Squamous Epithelial Cells Few /hpf (<5) Urine Bacteria Few /hpf (None Seen) H Urine Glucose Normal mg/dL (Normal) Labs and/or images reviewed: Labs reviewed by me, Image(s) reviewed by me Assessment/Plan Assessment/Plan Acute left flank pain: CT abdomen pelvis without contrast negative all labs normal UA negative for infection: Consult for GI Dr. Nicko Salmeron appreciated, Mild gastritis by EGD by Dr. Nicko Salmeron placed on pantoprazole Shingles left midthoracic area: Acyclovir tramadol transmitted to pharmacy History of Urinary tract infections History of rectal bleed secondary to hemorrhoids and polyps by colonoscopy 2022 History of removal of colon polyps Getting EGD by Dr. Nicko Salmeron today, colonoscopy not needed at this time per Dr.N Salmeron and the was informed. Plan discussed with: Patient Date of Service: Jul 22, 2024 Billing Provider: COURTNEY BLAKELY MD Common Visit Codes: [id number] INP/OBS CARE(HIGH) COURTNEY BLAKELY MD Jul 22, 2024 11:49
[2024-07-22 13:00] VITALS: BP 120/64; PULSE 72; RESP 19; TEMP 97.8; O2SAT 96
[2024-07-22 16:56] VITALS: TEMP 36.6
[2024-07-22 17:00] VITALS: BP 115/73; PULSE 85; RESP 17; TEMP 97.5; O2SAT 97
--- NOTE | 2024-07-22 17:39 | MEDREC ---
[facility] Intervention Section I [facility] Intervention: Review courses of therapy (PLEASE CONSIDER D/C ANTIBIOTIC(S) IN ABSENCE OF BACTERIAL INFECTION) DEVEN NOVA PHARMACIST Jul 22, 2024 17:39
== END 2024-07-22 17:42 | disposition home or self-care (01) | DRG 392 ==
LOC: ER 04:52 → OVERFLOW 11:14 → EAST 23:01
PROVIDERS: ADMIT Family Medicine; ATTEND Family Medicine
PROC: 0DB68ZX Excision of Stomach, Via Natural or Artificial Opening Endoscopic, Diagnostic (ICD-10-PCS; 2024-07-21)
PROC: 0DB48ZX Excision of Esophagogastric Junction, Via Natural or Artificial Opening Endoscopic, Diagnostic (ICD-10-PCS; 2024-07-21)
PROC: 0DB98ZX Excision of Duodenum, Via Natural or Artificial Opening Endoscopic, Diagnostic (ICD-10-PCS; principal; 2024-07-21 15:40)
DX: K29.80 Duodenitis without bleeding (principal); E87.1 Hypo-osmolality and hyponatremia; K29.70 Gastritis, unspecified, without bleeding; K59.00 Constipation, unspecified; K44.9 Diaphragmatic hernia without obstruction or gangrene; B02.9 Zoster without complications; Z79.899 Other long term (current) drug therapy; Z90.49 Acquired absence of other specified parts of digestive tract; Z87.440 Personal history of urinary (tract) infections; Z86.0100 Personal history of colon polyps, unspecified
CPT/HCPCS: 36415; 43239; 72080; 74176; 76775; 80048; 80053; 81001; 84702; 85025; 96365; 96375; G0378; J1885; J2250; J2405; J2470; J2543